=== PATIENT | male | born 1990 | race Caucasian/White ===

== ENCOUNTER 2020-10-11 12:42 | Emergency (ER) | payer MEDICAID, SELFPAY ==
--- NOTE | 2020-10-11 13:56 | ED.DENTAL ---
HPI - Dental/Oral General Chief complaint: Dental/Oral Stated complaint: dental pain Time Seen by Provider: 10/11/20 13:56 History of Present Illness HPI Narrative: Patient complains of left lower tooth pain for the last 4 5 days, no fever no chills no difficulty breathing or swallowing He had a dental procedure on that tooth a year ago Related Data Previous Rx's Medication Instructions Recorded ibuprofen 600 mg PO Q6H PRN #20 tab 10/11/20 oxycodone-acetaminophen [Percocet] 1 tab PO Q6H PRN #10 tab 10/11/20 penicillin V potassium 500 mg PO QID 7 Days #28 tab 10/11/20 Allergies Allergy/AdvReac Type Severity Reaction Status Date / Time No Known Allergies Allergy Unverified 01/10/20 17:31 Review of Systems Review of Systems: Left lower tooth pain Negatives are no fever no chills no dizziness no weakness no headache no earache no runny nose or congestion no difficulty breathing or swallowing no sore throat no rash Yes all other systems are reviewed and are negative PMFSH Past Medical History Source: nursing notes reviewed Social History Social History Advance Directives: No Advance Directives Information Provided: No Physical Exam Vital Signs: General appearance is no acute distress The ears are normal without redness of the membrane or narrow [place] of the canals Sinuses nontender Pharynx is clear without redness swelling or exudate, no drooling, voice is normal Dental exam the left rear lower molar is decayed and tender, no fluctuant gum swelling no swelling under the tongue no impairment of breathing or swallowing no trismus Neck is supple Respiratory no distress Skin no rash Discharge Plan Discharge Clinical Impression: Dental caries Patient Disposition: Home, Self-Care Additional Instructions: Follow with dentist Return anytime if worse Prescriptions: New oxycodone-acetaminophen [Percocet] 5-325 mg tablet 1 tab PO Q6H PRN (Reason: pain) Qty: 10 RF: 0 ibuprofen 600 mg tablet 600 mg PO Q6H PRN (Reason: pain) Qty: 20 RF: 0 penicillin V potassium 500 mg tablet 500 mg PO QID 7 Days Qty: 28 RF: 0
[2020-10-11 13:57] VITALS: BP 131/82; PULSE 59; RESP 16; TEMP 36.6; O2SAT 100; BMI 22.9
== END 2020-10-11 14:23 | disposition home or self-care (01) ==
PROVIDERS: Emergency Provider Emergency Medicine
DX: K02.9 Dental caries, unspecified (principal)
CPT/HCPCS: 99283

== ENCOUNTER 2020-12-04 15:38 | Emergency (ER) | payer MEDICAID, SELFPAY ==
[2020-12-04 15:56] VITALS: BP 111/68; PULSE 130; PULSE 95; TEMP 36.8; O2SAT 97; BMI 23.6
--- NOTE | 2020-12-04 16:13 | ED.GENADULT ---
HPI - General Adult General Chief complaint: General Medical Stated complaint: heat exposure Time Seen by Provider: 12/04/20 16:13 History of Present Illness HPI narrative: 30-year-old male here today for heat exhaustion. Patient was working on the roof in [place], got into argument with his boss and left the job. Unable to get a ride home, walked to [place] to gas station where he asked to call for the ambulance. Patient was feeling nauseous has not eaten anything all day. Brought by EMS, 1 L of normal saline started. Patient denies any SOB, CP, syncope or presyncope. Related Data Previous Rx's Medication Instructions Recorded ibuprofen 600 mg tablet 600 mg PO Q6H PRN #20 tab 10/11/20 oxycodone-acetaminophen 5 mg-325 1 tab PO Q6H PRN #10 tab 10/11/20 mg tablet (Percocet) penicillin V potassium 500 mg 500 mg PO QID 7 Days #28 tab 10/11/20 tablet Allergies Allergy/AdvReac Type Severity Reaction Status Date / Time No Known Allergies Allergy Unverified 01/10/20 17:31 Review of Systems Review of Systems: Constitutional : No Weight loss, No Fever, No Chills, No Night Sweats, No Fatigue, No Malaise ENT/Mouth : No Hearing loss, No Ear Pain, No Nasal Congestion, No Sinus Pain, No Hoarseness, No sore throat, No Rhinorrhea, No Swallowing Difficulty Eyes: No Eye Pain, No Swelling, No Redness, No Foreign Body, No Discharge, No Vision Changes Cardiovascular : No Chest Pain, No SOB, No Dyspnea on Exertion, No Orthopnea, No Edema, No Palpitations Respiratory : No Cough, No Sputum, No Wheezing, No Smoke Exposure, No Dyspnea Gastrointestinal : Nausea, No Vomiting, No Diarrhea, No Constipation, No abdominal Pain, No Hematochezia, No Melena Genitourinary : no irregular bleeding, No Dysuria, No Urinary Frequency, No Hematuria, No Urinary Incontinence, No Urgency, No Flank Pain, No Urinary Flow Changes, No Hesitancy Musculoskeletal : No joint pain, No Myalgias, No Joint Swelling Skin : No Skin Lesions, No rash Neuro : No Weakness, No Numbness, No Paresthesias, No Loss of Consciousness, No Dizziness, No Headache Psych : No Anxiety/Panic, No Depression, No SI/HI/AH/VH, No Social Issues, Heme/Lymph: No Bruising, No Bleeding,No Lymphadenopathy Endocrine : No Polyuria, No Polydipsia, No Temperature Intolerance Yes all other systems are reviewed and are negative PMFSH Social History Social History Advance Directives: No Advance Directives Information Provided: No Physical Exam Vital Signs: Vital Signs: Last Vital Signs Temp 98.3 F 12/04/20 16:29 Pulse 85 12/04/20 16:29 Resp 16 12/04/20 16:29 BP 112/52 L 12/04/20 16:29 Pulse Ox 97 12/04/20 16:29 Body Mass Index 23.6 Const: General: no acute distress, well developed, alert and awake Nutritional Appearance: well nourished Orientation/consciousness: patient oriented x3 Limitations: no limitations HENMT: Head: Yes normal to inspection Ears: hearing grossly normal bilaterally General nose exam: Normal external nose present Face and sinus: Yes normal facial exam Mouth: Normal oral and palatal mucosa present Throat: Yes posterior oropharynx normal Eyes: General: appearance normal, both eyes and all related structures Neck: Neck: Yes normal visual inspection, Yes full ROM and Yes no JVD Chest: Chest palpation & inspection: normal inspection of the chest and normal palpation of entire chest wall Resp: Effort & Inspection: normal respiratory effort and able to speak in complete sentences Auscultation: clear to auscultation bilaterally Cardio: Rate: regular rate Rhythm: regular rhythm Heart sounds: S1 normal heart sound present, S2 normal heart sound present, no gallops, no murmurs and no rubs Peripheral pulses: Peripheral pulses 2+ throughout and radial pulses present GI: Inspection: Yes normal to inspection and No distended Palpation (GI): Soft to palpation, Firmness to palpation present (GI), nontender and no guarding Auscultation: normal bowel sounds : General: Yes no CVA tenderness Back/Spine/Pelvis: Back: no CVA tenderness Thoracic/Lumbar Spine: thoracic and lumbar spine normal to inspection Skin: General skin exam: elasticity normal, turgor normal and dry skin Neuro: General: patient oriented x3 and moves all extremities Psych: Mental Status: mental status grossly normal Speech and movement: Normal speech and movement present Affect: normal affect Attitude: cooperative Thought process: Normal thought process present Course Course Course Narrative: 30-year-old male who walked over 20 miles in 90 ? temperature. Patient has not ate anything today. He drank some water. Will do basic labs, electrolytes, give him fluids and will re-evaluate. Reevaluation(s) Reevaluation #1: White count elevated to 14.3, sodium 146, BUN 18, creatinine 1.62. One more Liter of fluids ordered will recheck BUN and creatinine after fluids. Patient reports that he is feeling much better. Reevaluation #2: Repeated BUN is 18 and creatinine 1.57. Patient was encouraged to drink plenty fluids. Follow up with his PCP. He is agreeable to go home with his parents. He is he verbalizes understanding of instructions and is agreeable to plan of care. He was given the opportunity to ask questions and all questions answered. T Medical Decision Making Lab Data Result diagrams: 12/04/20 16:39 12/04/20 18:06 Labs: Lab Results 12/04/20 12/04/20 12/04/20 Range/Units 16:39 16:39 16:54 WBC 14.3 H (4.8-10.8) X10*3/uL RBC 4.27 L (4.60-5.80) X10*6/uL Hgb 14.0 (14.0-18.0) g/dl Hct 40.2 L (42-52) % MCV 94.1 (80-98) fL MCH 32.8 (27.0-33.0) pg MCHC 34.8 (31.0-36.0) g/dl RDW 12.7 (11.0-16.0) % Plt Count 134 L (160-400) X10*3/uL MPV 10.2 (9.4-12.4) fL Immature Gran % (Auto) 0.8 H (0.0-0.4) % Neut % (Auto) 84.5 H (45-73) % Lymph % (Auto) 9.2 L (20-40) % [place] % (Auto) 5.0 (2-11) % Eos % (Auto) 0.2 (0-4) % Baso % (Auto) 0.3 (0-2) % Lymph # (Auto) 1.3 (1.2-4.9) X10*3/uL [place] # (Auto) 0.7 (0.1-1.2) X10*3/uL Eos # (Auto) 0.0 (0.0-0.4) X10*3/uL Baso # (Auto) 0.0 (0.0-0.2) X10*3/uL Abs Immat Gran (auto) 0.12 H (0.00-0.03) X10*3/uL Absolute Neuts (auto) 12.1 H (2.0-8.3) X10*3/uL Absolute Nucleated RBC 0.000 (0.0-0.012) X10*3/uL Nucleated RBC % (auto) 0.0 (0.0-0.2) /100WBC Sodium 146 H (135-145) mmol/L Potassium 4.5 (3.3-5.1) mmol/L Chloride 110 H (96-108) mmol/L Carbon Dioxide 24 (22-29) mmol/L Anion Gap 17 (12-20) BUN 18 H (9-16) mg/dL Creatinine 1.62 H (0.5-1.4) mg/dL Estim Creat Clear Calc 67.2 Estimated GFR 51 Random Glucose 85 (60-115) mg/dL Calcium 8.8 (8.4-10.2) mg/dL Urine Color YELLOW Urine Appearance HAZY Urine pH 6.0 (5.0-8.0) Ur Specific [place] >= 1.030 H (1.005-1.025) Urine Protein 1+ H (NEG-TRACE) MG/DL Urine Glucose (UA) NEG (NEG) MG/DL Urine Ketones NEG (NEG) MG/DL Urine Blood NEG (NEG) Urine Nitrite NEG (NEG) Ur Leukocyte Esterase NEG (NEG) Urine RBC 0-2 (0) /HPF Urine WBC 0 (0-4) /HPF Ur Squamous Epith Cells 2+ /LPF Urine Bacteria TRACE /LPF Hyaline Casts 1-4 /LPF Granular Casts 0-2 /LPF Urine Mucus 1+ /LPF /04/14 Range/Units 18:06 WBC (4.8-10.8) X10*3/uL RBC (4.60-5.80) X10*6/uL Hgb (14.0-18.0) g/dl Hct (42-52) % MCV (80-98) fL MCH (27.0-33.0) pg MCHC (31.0-36.0) g/dl RDW (11.0-16.0) % Plt Count (160-400) X10*3/uL MPV (9.4-12.4) fL Immature Gran % (Auto) (0.0-0.4) % Neut % (Auto) (45-73) % Lymph % (Auto) (20-40) % [place] % (Auto) (2-11) % Eos % (Auto) (0-4) % Baso % (Auto) (0-2) % Lymph # (Auto) (1.2-4.9) X10*3/uL [place] # (Auto) (0.1-1.2) X10*3/uL Eos # (Auto) (0.0-0.4) X10*3/uL Baso # (Auto) (0.0-0.2) X10*3/uL Abs Immat Gran (auto) (0.00-0.03) X10*3/uL Absolute Neuts (auto) (2.0-8.3) X10*3/uL Absolute Nucleated RBC (0.0-0.012) X10*3/uL Nucleated RBC % (auto) (0.0-0.2) /100WBC Sodium (135-145) mmol/L Potassium (3.3-5.1) mmol/L Chloride (96-108) mmol/L Carbon Dioxide (22-29) mmol/L Anion Gap (12-20) BUN 18 H (9-16) mg/dL Creatinine 1.57 H (0.5-1.4) mg/dL Estim Creat Clear Calc 69.4 Estimated GFR 52 Random Glucose (60-115) mg/dL Calcium (8.4-10.2) mg/dL Urine Color Urine Appearance Urine pH (5.0-8.0) Ur Specific [place] (1.005-1.025) Urine Protein (NEG-TRACE) MG/DL Urine Glucose (UA) (NEG) MG/DL Urine Ketones (NEG) MG/DL Urine Blood (NEG) Urine Nitrite (NEG) Ur Leukocyte Esterase (NEG) Urine RBC (0) /HPF Urine WBC (0-4) /HPF Ur Squamous Epith Cells /LPF Urine Bacteria /LPF Hyaline Casts /LPF Granular Casts /LPF Urine Mucus /LPF Discharge Plan Discharge Clinical Impression: Dehydration Heat exhaustion due to water depletion Qualifiers: Encounter type: initial encounter Qualified Code(s): T67.3XXA - Heat exhaustion, anhydrotic, initial encounter Patient Disposition: Home, Self-Care Instructions: Dehydration (ED), Heat Exhaustion (ED) Additional Instructions: You were seen here today after being in the sun for too long without food and water. You were given fluids. You lab work showed that your were dehydrated. Please make sure that you eat and drink plenty fluids. Please make sure you follow-up with primary care provider in 2-3 days. You may return to emergency department if you experience any concerning symptoms. Prescriptions: No Action oxycodone-acetaminophen [Percocet] 5-325 mg tablet 1 tab PO Q6H PRN (Reason: pain) Qty: 10 RF: 0 ibuprofen 600 mg tablet 600 mg PO Q6H PRN (Reason: pain) Qty: 20 RF: 0 penicillin V potassium 500 mg tablet 500 mg PO QID 7 Days Qty: 28 RF: 0
[2020-12-04 16:29] VITALS: BP 112/52; PULSE 85; RESP 16; TEMP 36.8; O2SAT 97
[2020-12-04] MEDS: 0.9 % Sodium Chloride 1,000 ML 999 ML IV (16:37)
[2020-12-04 16:44] LABS: MANUAL DIFF FLAG NO
[2020-12-04 16:45] LABS: Basophils Percent Auto 0.3 % (0-2); Eosinophils Percent Auto 0.2 % (0-4); Hematocrit 40.2 % (42-52); Imm Gran Abs Auto 0.12 X10*3/uL (0.00-0.03); Imm Gran Pct Auto 0.8 % (0.0-0.4); Lymphocytes Absolute Auto 1.3 X10*3/uL (1.2-4.9); Lymphocytes Percent Auto 9.2 % (20-40); Mean Corpuscular HGB Conc 34.8 g/dl (31.0-36.0); Mean Corpuscular Hemoglobin 32.8 pg (27.0-33.0); Mean Corpuscular Volume 94.1 fL (80-98); Mean Platelet Volume 10.2 fL (9.4-12.4); Monocytes Absolute Auto 0.7 X10*3/uL (0.1-1.2); Neutrophils Absolute Auto 12.1 X10*3/uL (2.0-8.3); Neutrophils Percent Auto 84.5 % (45-73); Platelet Count 134 X10*3/uL (160-400); Red Blood Count 4.27 X10*6/uL (4.60-5.80); Red Cell Distribution Width 12.7 % (11.0-16.0); White Blood Count 14.3 X10*3/uL (4.8-10.8)
[2020-12-04 17:02] LABS: Appearance Urine HAZY; Color Urine YELLOW; Glucose Urine UA NEG (NEG); Leukocyte Esterase Urine NEG (NEG); Nitrite Urine NEG (NEG); Specific Gravity - Urine >= 1.030 (1.005-1.025); UACC Culture Trigger NO; Urine Blood NEG (NEG); Urine Ketones NEG (NEG); Urine Protein 1+ MG/DL (NEG-TRACE)
[2020-12-04 17:12] LABS: Anion Gap 17 (12-20); Blood Urea Nitrogen 18 mg/dL (9-16); Calcium 8.8 mg/dL (8.4-10.2); Carbon Dioxide 24 mmol/L (22-29); Chloride 110 mmol/L (96-108); Creatinine Clr Calc Pharmacy 67.2; Estimated Glomerular Filt Rate 51; Glucose Random 85 mg/dL (60-115); Potassium 4.5 mmol/L (3.3-5.1); Sodium 146 mmol/L (135-145)
[2020-12-04 17:50] LABS: Bacteria Urine TRACE /LPF; Mucus Urine 1+ /LPF; RBC Urine 0-2 /HPF (0); Squamous Epithelial Cell Urine 2+ /LPF; WBC Urine 0 /HPF (0-4)
[2020-12-04 17:51] LABS: Granular Casts Urine 0-2 /LPF
[2020-12-04 18:31] LABS: Blood Urea Nitrogen 18 mg/dL (9-16); Creatinine Clr Calc Pharmacy 69.4; Estimated Glomerular Filt Rate 52
== END 2020-12-04 19:10 | disposition home or self-care (01) ==
PROVIDERS: Nurse Practitioner Family; Emergency Provider Emergency Medicine Emergency Medical Services
DX: E86.0 Dehydration (principal); T67.3XXA Heat exhaustion, anhydrotic, initial encounter; X32.XXXA Exposure to sunlight, initial encounter; Y93.01 Activity, walking, marching and hiking; Y92.414 Local residential or business street as the place of occurrence of the external cause; Y99.9 Unspecified external cause status
CPT/HCPCS: 36415; 80048; 81001; 81003; 82565; 84520; 85025; 96360; 99283; 99284